=== PATIENT | female | born 1995 | race Native Hawaiian/Other Pacific Islander ===

== ENCOUNTER 2021-08-25 19:07 | Emergency (ER) ==
[~2021-08-25] VITALS: Ht 167.6 cm; Wt 113.6 kg
== END 2021-08-25 22:14 | disposition left against medical advice (07) ==
LOC: M ED 19:07
DX: Z53.21 Procedure and treatment not carried out due to patient leaving prior to being seen by health care provider (principal)

== ENCOUNTER → 2021-12-23 | Outpatient (CLI) | payer OTHER | LOC: M PLALAB 15:51 | PROVIDERS: ATTEND Nurse Practitioner Family | DX: Z13.89 Encounter for screening for other disorder (principal) ==

== ENCOUNTER → 2022-03-25 | Outpatient (CLI) | payer OTHER | LOC: M PLARAD 14:23 | PROVIDERS: ATTEND Physician Assistant Surgical | DX: M51.26 Other intervertebral disc displacement, lumbar region (principal); M47.816 Spondylosis without myelopathy or radiculopathy, lumbar region ==

== ENCOUNTER 2022-08-17 21:27 | Emergency (ER) | payer OTHER ==
[~2022-08-17] VITALS: Ht 167.6 cm; Wt 120.3 kg
[2022-08-17] MEDS ORDERED: FLUO40CA PO (21:53)
[2022-08-17] MEDS ORDERED: PROP80TA PO (21:53)
[2022-08-18] MEDS ORDERED: KETOROLAC 30 MG/ML 1ML VIAL IV ONE (01:20)
[2022-08-18] MEDS ORDERED: METHOCARBAMOL 1,000 MG/10 ML VIAL IV ONE (01:20)
[2022-08-18] MEDS ORDERED: METH-1165 PO (03:16)
[2022-08-18] MEDS ORDERED: NAPR-837 PO (03:16)
[2022-08-18 03:23] VITALS: BP 128/78
== END 2022-08-18 03:25 | disposition home or self-care (01) ==
LOC: EDBD 21:27 → M ED 21:27
DX: M54.50 Low back pain, unspecified (principal); V48.6XXA Car passenger injured in noncollision transport accident in traffic accident, initial encounter; Z88.1 Allergy status to other antibiotic agents; M51.36 Other intervertebral disc degeneration, lumbar region; M51.37 Other intervertebral disc degeneration, lumbosacral region; M51.34 Other intervertebral disc degeneration, thoracic region; Z79.899 Other long term (current) drug therapy
CPT/HCPCS: 72128; 72131; 96374; 96375; 99284; J1885; J2800

== ENCOUNTER 2022-09-26 11:20 | Emergency (ER) | payer OTHER ==
[~2022-09-26] VITALS: Ht 167.6 cm; Wt 104.5 kg
[~2022-09-26 11:20] MED LIST: FLUO40CA PO; METH-1165 PO; NAPR-837 PO; PROP80TA PO
[2022-09-26] MEDS ORDERED: CITA10TA7 PO (11:53)
[2022-09-26] MEDS ORDERED: BACITRACIN OINTMENT 30GM TUBE TOP STA (13:26)
[2022-09-26] MEDS ORDERED: BOOSTRIX/ADACEL VACCINE (DIPHTH/PERTUSS/ACELL/TETANUS) 0.5ML SYR IM ONE (13:30)
[2022-09-26] MEDS ORDERED: CEPHALEXIN 500 MG CAP PO ONE (13:30)
[2022-09-26] MEDS ORDERED: PERCOCET 5MG/325MG TAB PO ONE (13:30)
[2022-09-26] MEDS ORDERED: LIDOCAINE 1% MDV 20ML VIAL SC ONE (13:55)
[2022-09-26 16:20] VITALS: BP 132/80
[2022-09-26] MEDS ORDERED: AMOX875T2 PO (17:05)
[2022-09-26] MEDS ORDERED: DIFL150T PO (17:05)
== END 2022-09-26 17:36 | disposition home or self-care (01) ==
LOC: M ED 11:20
DX: S51.812A Laceration without foreign body of left forearm, initial encounter (principal); S51.811A Laceration without foreign body of right forearm, initial encounter; S71.139A Puncture wound without foreign body, unspecified thigh, initial encounter; W54.0XXA Bitten by dog, initial encounter; Y92.009 Unspecified place in unspecified non-institutional (private) residence as the place of occurrence of the external cause; Y93.89 Activity, other specified; Y99.9 Unspecified external cause status; Z79.899 Other long term (current) drug therapy; Z23 Encounter for immunization

== ENCOUNTER → 2023-03-02 | Outpatient (REF) | payer OTHER ==
[~2023-03-02] MED LIST changes: +AMOX875T2 PO; +CITA10TA7 PO; +DIFL150T PO
[2023-03-02 20:53] LABS: GC DNA AMPLIFICATION POSITIVE (NEGATIVE)
== END ==
LOC: M LAB REF 17:25
PROVIDERS: ATTEND Registered Nurse
DX: Z11.3 Encounter for screening for infections with a predominantly sexual mode of transmission (principal)